=== PATIENT | female | born 1955 | race African-American/Black ===

== ENCOUNTER → 2016-04-12 | Outpatient (CLI) | payer BC ==
[2016-04-12 14:08] LABS: CH 28.4; CHCM 32.4; HDW 2.43; HGB 13.7 gm/dL (11.4-16.0); MCH 28.9 pg (25.0-35.0); MCHC 32.7 g/dL (31.0-37.0); MCV 88.2 fL (80.0-100.0); Mean Platelet Volume 7.5; RBC 4.76 m/uL (3.80-5.40); WBC 6.7 k/uL (3.8-10.6)
[2016-04-12 14:22] LABS: Prothrombin Time 10.1 sec (9.0-12.0)
[2016-04-12 14:32] LABS: Partial Thromboplastin Time 21.8 sec (22.0-30.0)
== END | disposition home or self-care (01) ==
LOC: LABPAT 12:07
PROVIDERS: ATTEND Thoracic Surgery (Cardiothoracic Vascular Surgery)
DX: Z01.810 Encounter for preprocedural cardiovascular examination (principal); Z01.812 Encounter for preprocedural laboratory examination; I10 Essential (primary) hypertension
CPT/HCPCS: 85027; 85610; 85730; 93005

== ENCOUNTER → 2016-04-12 | Outpatient (CLI) | payer BC ==
[2016-04-12 14:29] LABS: ALT 34 U/L (9-52); AST 25 U/L (14-36); Alkaline Phosphatase 65 U/L (38-126); Anion Gap 10 mmol/L; Blood Urea Nitrogen 17 mg/dL (7-17); Calcium 9.3 mg/dL (8.4-10.2); Carbon Dioxide 29 mmol/L (22-30); Chloride 107 mmol/L (98-107); Glucose 151 mg/dL (74-99); Non-African American GFR(MDRD) 57 (>60 ml/min/1.73 sqM); Potassium 3.9 mmol/L (3.5-5.1); Sodium 146 mmol/L (137-145); Total Bilirubin 0.5 mg/dL (0.2-1.3); Total Protein 6.6 g/dL (6.3-8.2)
== END ==
LOC: LABWHC1 12:11
PROVIDERS: ATTEND Internal Medicine Critical Care Medicine
DX: R06.00 Dyspnea, unspecified (principal)
CPT/HCPCS: 36415; 80053; 82164; 85652

== ENCOUNTER 2016-04-14 08:18 | Inpatient (IN) | payer BC ==
--- NOTE | 2016-04-08 19:11 | CONS ---
DATE OF CONSULTATION: 04/08/2016 Patient is a 60-year-old female who has had a persistent cough since October 2015. Patient states that she coughs nearly continuously all day and most of the night. She is having great difficulty sleeping. She has had CT scans which do not demonstrate any abnormality. She has had pulmonary function testing, which shows significant decrease in both her FVC which is 59% of predicted and her FEV1 which is 42% of predicted. Her DLCO is only 31% of predicted. This is consistent with airway obstruction and obstructive lung disease. The patient is being treated for that with albuterol, Breo, Singulair and Proventil. She is also being treated with prednisone. She has been up as high as 40 mg of prednisone a day which did help to reduce the cough. She is currently on 5 mg a day which does not appear to do anything. The patient is referred for concern of possible sarcoidosis and request for lung biopsy. Previous medical history is significant for hypertension and arthritis. Previous surgical history includes thyroidectomy and tubal ligation. The patient is ALLERGIC TO PENICILLIN, ASPIRIN, EGGS, MAGDALENA INHIBITORS AND SULFA. She does drink alcohol socially. She does not smoke at this time. She quit smoking in 2000. Her mother did suffer from COPD. She also has siblings who suffer from COPD, hypertension, and diabetes. Complete physical examination and review of systems are on the chart. Of note, her lung phipps are clear with somewhat diminished breath sounds. No rails or rhonchi are noted. The patient does cough fairly consistently at least once every minute while she was in the office. In summary, this is a 60-year-old woman with pulmonary function testing that is consistent with chronic obstructive pulmonary disease and a family history, which is positive for chronic obstructive pulmonary disease. She is on multiple medications to treat chronic obstructive pulmonary disease, but has persistent cough. The etiology of which is indeterminate. Her CT scan is negative for any infiltrates or adenopathy and the indication for lung biopsy here seems a little thin. I will discuss this further with Dr. Rothman, who sent her to me requesting lung biopsy. I did discuss the procedure with the patient including risks versus benefits, possible complications of the usual perioperative course. I did discuss with her that if we decide to biopsy her, there is a possibility that the lung will be read as normal and that the lung biopsy will not serve any purpose. I did discuss with her very clearly at this is a diagnostic procedure and that it in of itself performing the lung biopsy will not make her breathing better. I did discuss with her that even if we get an abnormal diagnosis it may be one that does not have a known treatment. The patient appeared to understand the discussion. I asked for her thoughts and she said she just wants to stop coughing and feel better and she would like to know what is wrong. I will discuss this further with Dr. Rothman and make a final decision on lung biopsy. If we decide to proceed, it will likely be next week. ADDENDUM: The case was discussed with Dr. Rothman at length the same day as the consultation. He feels strongly the patient should have lung biopsy, as he believes she has sarcoidosis. He informed me there are well documented cases of sarcoidosis on lung biopsy with normal CT and CXR. It was agreed to proceed with biopsy with this in mind. MIRNA
[2016-04-13 12:03] VITALS: BMI 23.6
[2016-04-14] MEDS ORDERED: LIDOCAINE 1% 20 ML VIAL (10MG/ML) FOR IV START INTRADERMA ONE (09:09)
[2016-04-14] MEDS ORDERED: HYDROCORTISONE SUCCINATE 100 MG/2 ML VIAL IV ONE (09:24)
[2016-04-14] MEDS ORDERED: DEXAMETHASONE SOD PHOSPHATE 10 MG/ML 1 ML VIAL IV ONE (09:24)
[2016-04-14] MEDS ORDERED: SCOPOLAMINE 1.5MG/72HR PATCH TRANSDERM ONE (09:25)
[2016-04-14] MEDS ORDERED: LACTATED RINGERS 1,000 ML IV ONE (09:25)
[2016-04-14] MEDS ORDERED: ONDANSETRON 4 MG/2 ML VIAL IVP ONE (09:25)
[2016-04-14 09:30] LABS: Glucose,Whole Blood 132 mg/dL (75-99)
[2016-04-14] MEDS ORDERED: PROPOFOL 10 MG/ML 20 ML VIAL IV ONE (10:02)
[2016-04-14] MEDS ORDERED: ROCURONIUM BROMIDE 10 MG/ML 10 ML VIAL IV ONE (10:02)
[2016-04-14] MEDS ORDERED: NEOSTIGMINE 1 MG/ML 10 ML VIAL ONE (10:02)
[2016-04-14] MEDS ORDERED: SUCCINYLCHOLINE CHLORIDE 100 MG/5 ML SYR IV ONE (10:02)
[2016-04-14] MEDS ORDERED: MIDAZOLAM 2 MG/2 ML VIAL ONE (10:02)
[2016-04-14] MEDS ORDERED: fentaNYL (PF) 50 MCG/ML 2 ML AMP ONE (10:02)
[2016-04-14] MEDS ORDERED: GLYCOPYRROLATE 0.2 MG/ML 2 ML VIAL ONE (10:02)
[2016-04-14] MEDS ORDERED: LIDOCAINE 1% INJ 10MG/ML (20 ML MDV) ONE (10:02)
[2016-04-14] MEDS ORDERED: VANCOMYCIN IV ONE ×2 (10:30)
[2016-04-14] MEDS ORDERED: SODIUM CHLORIDE 0.9% IV ONE ×2 (10:30)
[2016-04-14] MEDS ORDERED: BUPIVACAINE (PF) 0.5% 30 ML VIAL SQ ONE ×2 (10:36)
[2016-04-14] MEDS ORDERED: IPRATROPIUM-ALBUTEROL 3 ML NEB IH PRN (11:14)
[2016-04-14] MEDS ORDERED: ONDANSETRON 4 MG/2 ML VIAL IVP PRN (11:14)
[2016-04-14] MEDS: HYDROmorphone 1 MG/ML 1 ML SYRINGE IVP ONE ×4 (11:28→14:45)
--- NOTE | 2016-04-14 11:30 | P.OP ---
Date of Procedure: 04/14/16 Preoperative Diagnosis: Chronic obstructive pulmonary disease, rule out sarcoidosis Postoperative Diagnosis: Chronic obstructive pulmonary disease, rule out sarcoidosis Procedure(s) Performed: Right thoracoscopic lung biopsy Anesthesia: FELIPE Surgeon: Judah Mae Bar Roller #1: Miguel Todd Estimated Blood Loss (ml): 5 IV fluids (ml): 300 Urine output (ml): 100 Pathology: other (Biopsies of the right upper middle and lower lobe were submitted for both pathology and culture.) Condition: stable Disposition: PACU (The patient is a 60-year-old female who presents with over 6 months of cough and difficulty breathing. Pulmonary function tests are markedly abnormal. Chest x-ray and CT have been read as normal. Patient has had extensive workup without a diagnosis. Lung biopsy was requested by Dr. Rothman.) Indications for Procedure: The patient is a 60-year-old female who presents with a greater than six-month history of shortness of breath and cough. She has had an extensive pulmonary workup. She has had a trial of steroid therapy. Pulmonary function tests are highly abnormal. Chest x-ray and computed tomography scan are read as essentially normal aside from some mild emphysematous changes on CT. Lung biopsy was requested by Dr. Rothman. Operative Findings: At thoracoscopy, the lung appeared relatively normal. There were some small blebs present on the inferior aspect of the right upper lobe. This area was biopsied. Biopsies were obtained from all 3 lobes and were sent for culture and pathology. Description of Procedure: Patient was brought to the operating room placed supine on the operating table anesthetized and intubated with a double-lumen endotracheal tube. Tube was positioned with fiberoptic bronchoscopy and secured. Patient was turned in the left lateral decubitus position. Right chest was sterilely prepped and draped. 3 one-inch incisions were made in the right chest. The lung was deflated. Video thoracoscope was used to guide biopsy of the right upper middle and lower lobe. Each biopsy was performed with 2 firings of the Endo EUNICE 3.5 stapler. Specimens were removed from the chest and cut on the back table. Portions were sent for culture including routine AFB and fungus cultures. Portions were also sent for pathology. On completion of the procedure a 28-Portuguese chest tube was placed through separate stab incision and positioned posterior apically. Was secured with 0 Ethibond. The lung was inflated under thoracoscopic visualization. Rib blocks were performed at the level of the incision with half percent Marcaine. The incisions were closed with layers of Vicryl suture. Dry sterile dressings were applied the patient was turned supine and extubated and transferred to recovery room in stable condition.
--- NOTE | 2016-04-14 11:57 | XR ---
EXAMINATION TYPE: XR chest 1V DATE OF EXAM: 04/14/2016 11:48 AM COMPARISON: 12/06/2015 HISTORY: 60-year-old female postop VATS TECHNIQUE: Single frontal view of the chest is obtained. FINDINGS: Heart is normal size. Mild elongation of the thoracic aorta. New right-sided chest tube is present. S ome stringy atelectasis at the left base. Additional patchy right mid and lower lung opacity. No appr eciable pneumothorax. IMPRESSION: 1. New right-sided chest tube. No appreciable pneumothorax. 2. Some new patchy atelectasis or infiltrate at the right base and some atelectasis at the left base.
[2016-04-14] MEDS: DEXTROSE 5%-0.45% NACL 1,000 ML IV SCH (15:16)
[2016-04-14] MEDS: HYDROCHLOROTHIAZIDE 25 MG TAB PO SCH (16:18)
[2016-04-14] MEDS: ALLOPURINOL 100 MG TAB PO SCH (16:18)
[2016-04-14] MEDS: IPRATROPIUM-ALBUTEROL 3 ML NEB IH SCH ×2 (16:43→20:15)
[2016-04-14] MEDS: MORPHINE SULFATE 2 MG/ML SYRINGE IV PRN ×3 (17:01→23:07)
--- NOTE | 2016-04-14 17:28 | P.CNPUL ---
History of Present Illness Consult date: 04/14/16 Requesting physician: Judah Mae Reason for consult: cough Chief complaint: Status post thoracoscopic lung biopsy History of present illness: This is a 60-year-old -[place] female, has been seeing Dr. Rothman since October of 2015 with chronic cough. Apparently she had extensive workup in the office and her workup was nondiagnostic. She had a PFT showing mostly severe restrictive and obstructive lung disease and low DLCO, however her CT of the chest was nondiagnostic. Chest x-ray was also nondiagnostic. Patient was referred to thoracic surgery for thoracoscopic lung biopsy. This was done today , and postoperatively I was asked to see the patient on consultation. Patient is having a relatively uneventful postoperative course except for some cough. Pain seems to be fairly well controlled. Patient continues to have a right- sided chest tube in place, and that will likely be removed tomorrow. Review of Systems 12 point review of systems were obtained, patient has mostly symptoms of chronic cough. Past Medical History Past Medical History: Chest Pain / Angina, GERD/Reflux, Hypertension, Skin Disorder, Thyroid Disorder Additional Past Medical History / Comment(s): taking prednisone for cough and SOB since Oct 2015,freq diarrhea,eczema History of Any Multi-Drug Resistant Organisms: None Reported Past Surgical History: Tubal Ligation Additional Past Surgical History / Comment(s): thyroidectomy,marker rt breast Additional Past Anesthesia/Blood Transfusion Reaction / Comment(s): states "has a hard time coming out of anesthesia".no hx blood transfusion Past Psychological History: No Psychological Hx Reported Smoking Status: Former smoker Past Alcohol Use History: Occasional Additional Past Alcohol Use History / Comment(s): quit smoking 2000,smoked approx 25-30yrs <1ppd Past Drug Use History: None Reported - Past Family History Mother Family Medical History: COPD, Diabetes Mellitus Additional Family Medical History / Comment(s): "bad heart" Father Family Medical History: Renal Disease Sister(s) Family Medical History: Congestive Heart Failure (CHF), COPD, Diabetes Mellitus , Hypertension Medications and Allergies Home Medications Medication Instructions Recorded Confirmed Type Allopurinol [Zyloprim] 100 mg PO DAILY 04/13/16 04/14/16 History Calcium Carbonate/Vitamin D3 1 tab PO DAILY 04/13/16 04/14/16 History [Caltrate 600 Plus D3 Tablet] Ergocalciferol [Vitamin D2] 50,000 unit PO Q30D 04/13/16 04/14/16 History Hydrochlorothiazide 25 mg PO DAILY 04/13/16 04/14/16 History Ibuprofen [Motrin] 400 mg PO TID PRN 04/13/16 04/14/16 History L.acidoph,Paracasei, B.lactis 1 cap PO DAILY 04/13/16 04/14/16 History [Probiotic] [place]-3/Dha/Epa/Fish Oil [Fish Oil 1 cap PO DAILY 04/13/16 04/14/16 History 500 mg Softgel] Pravastatin Sodium [Pravastatin 20 mg PO DAILY 04/13/16 04/14/16 History Sodium] cloNIDine HCL [Catapres] 0.1 mg PO BID 04/13/16 04/14/16 History predniSONE 5 mg PO DAILY 04/13/16 04/14/16 History traMADol HCL [Ultram] 50 mg PO Q6HR PRN 04/13/16 04/14/16 History Levothyroxine Sodium [Levoxyl] 125 mcg PO DAILY 04/14/16 04/14/16 History Allergies Allergy/AdvReac Type Severity Reaction Status Date / Time adhesive Allergy Rash/Hives Verified 04/14/16 08:38 adhesive tape Allergy Rash/Hives,states Verified 04/14/16 08:38 "paper tape ok" egg Allergy stomach Verified 04/14/16 08:38 upset latex Allergy Rash/Hives Verified 04/14/16 08:38 Penicillins Allergy Nausea & Verified 04/14/16 08:38 Vomiting sulfamethoxazole Allergy muscle Verified 04/14/16 08:38 spasms,dyspnea Physical Exam Vitals: Vital Signs Temp Pulse Resp BP Pulse Ox 04/14/16 14:30 74 16 133/96 100 04/14/16 13:30 78 16 149/94 100 04/14/16 13:01 69 16 145/95 100 04/14/16 12:45 77 16 147/91 100 04/14/16 12:30 79 16 139/82 100 04/14/16 12:15 74 16 143/102 99 04/14/16 12:00 76 16 144/99 99 04/14/16 11:45 74 16 154/103 100 04/14/16 11:30 78 16 143/98 100 04/14/16 11:19 97.8 F 89 15 165/108 97 04/14/16 08:48 97.3 F L 85 16 153/93 96 Intake and Output 04/14/16 04/14/16 04/14/16 06:59 14:59 22:59 Intake Total 1000 Output Total 125 Balance 875 Intake: IV 1000 Output: Urine 100 Estimated Blood Loss 25 Other: Weight 78.6 kg Patient Weight 04/15/16 06:59 Weight 78.6 kg Physical Exam revealed a 60-year-old female in no distress HEENT:[Neck is supple.] [No neck masses.] [No thyromegaly.] [No JVD.] Chest: [Diminished breath sounds at the bases, minimal crackles at the right base, no rhonchi no wheezes. Cardiac Exam: [Normal S1 and S2, no S3 gallop, no murmur.] Abdomen: [Soft, nontender, no megaly, no rebound, no guarding, normal bowel sounds.] Extremities: [No clubbing, no edema, no cyanosis.] Neurological Exam: [No focal neurologic deficit.] Results - Laboratory Findings Abnormal lab findings: Abnormal Labs 04/14/16 09:21 POC Glucose (mg/dL) 132 H Assessment and Plan Plan: Impression: 1 Status post thoracoscopic lung biopsy, patient has a relatively uneventful postoperative course. 2 chronic cough with abnormal PFT, final pathology on the lung biopsy is pending. 3 history of hypertension 4 history of hypothyroidism 5 history of hypercholesterolemia 6 history of gout Recommendation: Continue DuoNeb, continue incentive spirometry, and we'll continue to follow. Time with Patient: Greater than 30
[2016-04-14] MEDS: PRAVASTATIN SODIUM 20 MG TAB PO SCH (20:35)
[2016-04-14] MEDS: cloNIDine HCL 0.1 MG TAB PO SCH (20:35)
[2016-04-14] MEDS: HEPARIN SODIUM,PORCINE 5,000 UNIT/ML 1 ML VIAL SQ SCH (20:36)
[2016-04-15] MEDS: DEXTROSE 5%-0.45% NACL 1,000 ML IV SCH (00:50)
[2016-04-15] MEDS: MORPHINE SULFATE 2 MG/ML SYRINGE IV PRN ×4 (04:25→23:10)
[2016-04-15] MEDS: LEVOTHYROXINE 125 MCG TAB PO SCH (06:21)
[2016-04-15 07:22] LABS: Basophils % (A) 0 %; CH 28.3; CHCM 32.6; Eosinophils % (A) 0 %; HCT 38.8 % (34.0-46.0); HDW 2.53; HGB 12.7 gm/dL (11.4-16.0); Luc # (Auto) 0.13; Luc % (Auto) 1; Lymphocytes # (A) 1.6 k/uL (1.0-4.8); Lymphocytes % (A) 15 %; MCH 28.5 pg (25.0-35.0); MCHC 32.7 g/dL (31.0-37.0); MCV 87.3 fL (80.0-100.0); Mean Platelet Volume 7.8; Monocytes # (A) 0.4 k/uL (0-1.0); Monocytes % (A) 4 %; Neutrophils # (A) 8.4 k/uL (1.3-7.7); Neutrophils % (A) 79 %; RBC 4.44 m/uL (3.80-5.40); RDW 13.5 % (11.5-15.5); WBC 10.6 k/uL (3.8-10.6); WBC (Perox) 10.38
[2016-04-15 07:33] LABS: Anion Gap 7 mmol/L; Blood Urea Nitrogen 13 mg/dL (7-17); Carbon Dioxide 27 mmol/L (22-30); Chloride 103 mmol/L (98-107); Glucose 157 mg/dL (74-99); Non-African American GFR(MDRD) >60 (>60 ml/min/1.73 sqM); Sodium 137 mmol/L (137-145)
[2016-04-15] MEDS: HYDROcodone/APAP 5-325MG 1 EACH TAB PO PRN ×3 (07:40→20:32)
[2016-04-15] MEDS: cloNIDine HCL 0.1 MG TAB PO SCH ×2 (08:05→20:33)
[2016-04-15] MEDS: HEPARIN SODIUM,PORCINE 5,000 UNIT/ML 1 ML VIAL SQ SCH ×2 (08:05→20:33)
[2016-04-15] MEDS: HYDROCHLOROTHIAZIDE 25 MG TAB PO SCH (08:06)
[2016-04-15] MEDS: ALLOPURINOL 100 MG TAB PO SCH (08:06)
--- NOTE | 2016-04-15 08:38 | P.PN ---
Subjective Principal diagnosis: COPD, rule out sarcoidosis POD #1 right thorascopic lung biopsy Sitting up in bed in mild respiratory distress, pain at CT site. Objective - Vital Signs Vital signs: Vital Signs Temp 98.1 F 04/15/16 00:00 Pulse 91 04/15/16 04:00 Resp 18 04/15/16 04:00 BP 143/93 04/15/16 04:00 Pulse Ox 96 04/15/16 04:00 Intake & Output 04/14/16 04/15/16 04/15/16 18:59 06:59 18:59 Intake Total 1120 600 Output Total 125 22 Balance 995 578 Weight 78.6 kg 79.4 kg Intake: IV 1000 Intake, IV Titration 600 Amount Dextrose 5%-0.45% NaCl 1, 600 000 ml @ 75 mls/hr IV . [id number] LUCÍA Rx#:[id number] Oral 120 Output: Drainage 22 Right Lateral Chest 22 Urine 100 Estimated Blood Loss 25 Other: Voiding Method Toilet # Voids 2 - Constitutional General appearance: Present: cooperative, mild distress - Respiratory Details: Right pleural chest tube placed to waterseal this morning, serosanguineous drainage present, 22 cc since surgery, no air leak. Respiratory: bilateral: diminished, wheezing - Cardiovascular Details: NSR on tele Rhythm: regular Heart sounds: normal: S1, S2 - Gastrointestinal Gastrointestinal Comment(s): Abdomen soft, nontender, nondistended. Active bowel sounds 4 quadrants. - Genitourinary Genitourinary Comment(s): Voiding clear, yellow urine - Musculoskeletal Musculoskeletal: Present: gait normal - Psychiatric Psychiatric: Present: A&O x's 3, appropriate affect, intact judgment & insight - Allied health notes Allied health notes reviewed: nursing - Labs CBC & Chem 7: 04/15/16 07:01 04/15/16 07:01 Labs: Abnormal Lab Results - Last 24 Hours (Table) 04/14/16 04/15/16 04/15/16 Range/Units 09:21 07:01 07:01 Neutrophils # 8.4 H (1.3-7.7) k/uL Glucose 157 H (74-99) mg/dL POC Glucose (mg/dL) 132 H (75-99) mg/dL Microbiology - Last 24 Hours (Table) 04/14/16 11:05 Gram Stain - Preliminary Lung - Right Tissue Culture - Preliminary 04/14/16 11:05 Gram Stain - Preliminary Lung - Right Tissue Culture - Preliminary 04/14/16 11:05 Gram Stain - Preliminary Lung - Right Tissue Culture - Preliminary 04/14/16 11:05 Acid Fast Bacilli Culture - Preliminary Lung - Right 04/14/16 11:05 Anaerobic Culture - Preliminary Lung - Right 04/14/16 11:05 Anaerobic Culture - Preliminary Lung - Right 04/14/16 11:05 Acid Fast Bacilli Culture - Preliminary Lung - Right 04/14/16 11:05 Fungal Culture - Preliminary Lung - Right 04/14/16 11:05 Fungal Culture - Preliminary Lung - Right 04/14/16 11:05 Fungal Culture - Preliminary Lung - Right 04/14/16 11:05 Acid Fast Bacilli Culture - Preliminary Lung - Right 04/14/16 11:05 Anaerobic Culture - Preliminary Lung - Right Assessment and Plan (1) COPD (chronic obstructive pulmonary disease) Status: Acute Plan: 1. DC right pleural chest tube. Obtain chest x-ray. 2. Pain control. 3. Discussed with RN need for breathing treatment. 4. Will DC home later if chest x-ray okay. 5. Patient to follow-up with Dr. Rothman, Dr. Mae in 2 weeks for pathology results. Time with Patient: Greater than 30
[2016-04-15] MEDS: IPRATROPIUM-ALBUTEROL 3 ML NEB IH SCH ×4 (08:55→19:48)
--- NOTE | 2016-04-15 10:28 | XR ---
EXAMINATION TYPE: XR chest 2V DATE OF EXAM: 04/15/2016 10:09 AM COMPARISON: 04/14/2016 TECHNIQUE: PA and lateral views submitted. HISTORY: Post chest tube removal FINDINGS: Subsegmental consolidation bilaterally. There is a tiny less than 5% right lateral pneumothorax. Hear t size stable. IMPRESSION: 1. Bilateral infiltrate and tiny right effusion are stable. 2. Chest tube removal with tiny midlung lateral less than 5% pneumothorax.
[2016-04-15] MEDS: traMADol 50 MG TAB PO PRN ×2 (10:44→16:06)
--- NOTE | 2016-04-15 10:48 | P.DS ---
Providers Date of admission: 04/14/16 08:18 Attending physician: Judah Mae Consults: 04/14/16 11:14 Consult Physician Routine Consulting Provider: Mateo Rothman Reason/Comments: post op, known to you Do you want consulting provider notified?: Yes Primary care physician: Brennon Colin - Discharge Diagnosis(es) (1) COPD (chronic obstructive pulmonary disease) Current Visit: Yes Status: Acute Hospital Course: FINAL DIAGNOSIS: 1.[chronic obstructive pulmonary disease, rule out sarcoidosis] 2.[hypertension] 3.[hypothyroid] PRINCIPAL PROCEDURE: 1.[right thorascopic lung biopsy] 2.[placement of right pleural chest tube] HISTORY OF PRESENT ILLNESS: [This 60 year old female was being followed by Dr. Rothman for the last 6 months for unrelieved shortness of breath and increasing coughing. Her pulmonary function tests in his office were grossly abnormal, however, chest x-ray and CT scan had been read as normal. She underwent an extensive work-up without a diagnosis. Dr. Rothman consulted cardiothoracic surgery for lung biopsy. The patient was seen and evaluated by Dr. Mae, an extensive discussion was held with the patient regarding risks and benefits of the procedure, including that the diagnosis may not be one for which there is a cure. She verbalized understanding and wished to proceed with surgery.] HOSPITAL COURSE:[The patient was brought to the hospital, was taken to the operating room and prepared per usual fashion. Dr. Mae performed a right thorascopic lung biopsy, with samples of right upper, middle, and lower lobes sent for culture and pathology. A right pleural chest tube was placed, the patient was extubated, transferred to the recovery room, then transferred to [address] [place] [address] for further recovery. She had no complications overnight, her chest tube was dc'd on POD #1, CXR was ordered and reviewed. The patient is to be discharged home on her home medications with the addition of pain medication, follow up appointments were made, instructions were given regarding incision care, and the patient is to receive her biopsy results at her follow up appointments. ] COMPLICATIONS: [The patient experienced no complications] CONSULTATIONS: 1.[Dr. Plascencia for pulmonology] DISCHARGE INSTRUCTIONS: 1. No driving for 2 weeks, or until physician gives their ok. 2. The patient should sleep in their own bed, no medical bed needed. 3. Stairs are not an issue. Go slowly, using handrail and take 1 step at a time 4. No lifting, pushing, or pulling more than 10 pounds for 2 weeks. The physician will advise of any restriction changes. 5. May return to work when feeling physically able. 6. Continue pain control per as needed orders. 7. Continue with incentive spirometry until otherwise directed by the physician. 8. Must shower daily after 48 hours from chest tube removal using liquid antibacterial soap. 9. Please remove dressing on [April 17, 2016] with routine incision care thereafter. 10. Pathology results to be discussed at follow-up appointments. Patient Condition at Discharge: Stable Plan - Discharge Summary New Discharge Prescriptions: HYDROcodone/APAP 5-325MG [[place] 5-325] 1 each PO Q4HR PRN #30 tab PRN Reason: Pain 6-10 Discharge Medication List Allopurinol [Zyloprim] 100 mg PO DAILY 04/13/16 [History] Calcium Carbonate/Vitamin D3 [Caltrate 600 Plus D3 Tablet] 1 tab PO DAILY [History] Ergocalciferol [Vitamin D2 (DRISDOL)] 50,000 unit PO Q30D 04/13/16 [History] Hydrochlorothiazide 25 mg PO DAILY 04/13/16 [History] Ibuprofen [Motrin] 400 mg PO TID PRN 04/13/16 [History] L.acidoph,Paracasei, B.lactis [Probiotic] 1 cap PO DAILY 04/13/16 [History] [place]-3/Dha/Epa/Fish Oil [Fish Oil 500 mg Softgel] 1 cap PO DAILY 04/13/16 [ History] Pravastatin Sodium 20 mg PO DAILY 04/13/16 [History] cloNIDine HCL [Catapres] 0.1 mg PO BID 04/13/16 [History] predniSONE 5 mg PO DAILY 04/13/16 [History] traMADol HCL [Ultram] 50 mg PO Q6HR PRN 04/13/16 [History] Levothyroxine Sodium [Levoxyl] 125 mcg PO DAILY 04/14/16 [History] HYDROcodone/APAP 5-325MG [[place] 5-325] 1 each PO Q4HR PRN #30 tab 04/15/16 [Rx] Follow up Appointment(s)/Referral(s): Judah Mae MD [STAFF PHYSICIAN] - 04/26/16 2:00 pm Mateo Rothman DO [Doctor of Osteopathic Medicine] - 04/26/16 1:00 pm Activity/Diet/Wound Care/Special Instructions: DISCHARGE INSTRUCTIONS: 1. No driving for 2 weeks, or until physician gives their ok. 2. The patient should sleep in their own bed, no medical bed needed. 3. Stairs are not an issue. Go slowly, using handrail and take 1 step at a time 4. No lifting, pushing, or pulling more than 10 pounds for 2 weeks. The physician will advise of any restriction changes. 5. May return to work when feeling physically able. 6. Continue pain control per as needed orders. 7. Continue with incentive spirometry until otherwise directed by the physician. 8. Must shower daily after 48 hours from chest tube removal using liquid antibacterial soap. 9. Please remove dressing on [April 17, 2016] with routine incision care thereafter. 10. Pathology results to be discussed at follow-up appointments. Discharge Disposition: HOME SELF-CARE
--- NOTE | 2016-04-15 12:25 | P.PN ---
Subjective Principal diagnosis: Status post thoracoscopic lung biopsy History of present illness: This is a 60-year-old -[place] female, has been seeing Dr. Rothman since October of 2015 with chronic cough. Apparently she had extensive workup in the office and her workup was nondiagnostic. She had a PFT showing mostly severe restrictive and obstructive lung disease and low DLCO, however her CT of the chest was nondiagnostic. Chest x-ray was also nondiagnostic. Patient was referred to thoracic surgery for thoracoscopic lung biopsy. This was done today , and postoperatively I was asked to see the patient on consultation. Patient is having a relatively uneventful postoperative course except for some cough. Pain seems to be fairly well controlled. Patient continues to have a right- sided chest tube in place, and that will likely be removed tomorrow. Patient was reevaluated today on 04/15/2016, her right-sided chest tube was removed. Patient desaturated with walking today, hence she will be discharged home on oxygen. Overall pulmonary status is about the same, continues to have cough, and that is a chronic since October of last year. Patient was made aware to follow up with Dr. Rothman after discharge and hopefully by the time she sees him the biopsy report will be available and he will discuss it with her. Objective - Vital Signs Vital signs: Vital Signs Temp 98.8 F 04/15/16 08:00 Pulse 84 04/15/16 09:07 Resp 20 04/15/16 12:06 BP 148/93 04/15/16 08:00 Pulse Ox 95 04/15/16 12:06 Intake & Output 04/14/16 04/15/16 04/15/16 18:59 06:59 18:59 Intake Total 1120 600 120 Output Total 125 22 100 Balance 995 578 20 Weight 78.6 kg 79.4 kg 79.4 kg Intake: IV 1000 Intake, IV Titration 600 Amount Dextrose 5%-0.45% NaCl 1, 600 000 ml @ 75 mls/hr IV . [id number] LUCÍA Rx#:[id number] Oral 120 120 Output: Drainage 22 Right Lateral Chest 22 Urine 100 100 Estimated Blood Loss 25 Other: Voiding Method Toilet Toilet # Voids 2 2 - Exam Physical Exam revealed a 60-year-old female in no distress, right-sided chest tube has been removed HEENT:[Neck is supple.] [No neck masses.] [No thyromegaly.] [No JVD.] Chest: [Diminished breath sounds at the bases, minimal crackles at the right base, no rhonchi no wheezes. Cardiac Exam: [Normal S1 and S2, no S3 gallop, no murmur.] Abdomen: [Soft, nontender, no megaly, no rebound, no guarding, normal bowel sounds.] Extremities: [No clubbing, no edema, no cyanosis.] Neurological Exam: [No focal neurologic deficit.] - Labs CBC & Chem 7: 04/15/16 07:01 04/15/16 07:01 Labs: Abnormal Lab Results - Last 24 Hours (Table) 04/15/16 04/15/16 Range/Units 07:01 07:01 Neutrophils # 8.4 H (1.3-7.7) k/uL Glucose 157 H (74-99) mg/dL Microbiology - Last 24 Hours (Table) 04/14/16 11:05 Gram Stain - Preliminary Lung - Right Tissue Culture - Preliminary 04/14/16 11:05 Gram Stain - Preliminary Lung - Right Tissue Culture - Preliminary 04/14/16 11:05 Gram Stain - Preliminary Lung - Right Tissue Culture - Preliminary 04/14/16 11:05 Acid Fast Bacilli Culture - Preliminary Lung - Right 04/14/16 11:05 Anaerobic Culture - Preliminary Lung - Right 04/14/16 11:05 Anaerobic Culture - Preliminary Lung - Right 04/14/16 11:05 Acid Fast Bacilli Culture - Preliminary Lung - Right 04/14/16 11:05 Fungal Culture - Preliminary Lung - Right 04/14/16 11:05 Fungal Culture - Preliminary Lung - Right 04/14/16 11:05 Fungal Culture - Preliminary Lung - Right 04/14/16 11:05 Acid Fast Bacilli Culture - Preliminary Lung - Right 04/14/16 11:05 Anaerobic Culture - Preliminary Lung - Right Assessment and Plan Plan: Impression: 1 Status post thoracoscopic lung biopsy, patient has a relatively uneventful postoperative course. 2 chronic cough with abnormal PFT, final pathology on the lung biopsy is pending. 3 history of hypertension 4 history of hypothyroidism 5 history of hypercholesterolemia 6 history of gout 7 postoperative hypoxia on exertion, patient will need to be placed on home O2 she would have incentive spirometry, continue bronchodilators and medications as ordered by Dr. Alexandra for her underlying lung disease. Recommendation: Continue DuoNeb, continue incentive spirometry, home O2, follow up with Dr. Rothman as scheduled. Time with Patient: Less than 30
[2016-04-15] MEDS: PRAVASTATIN SODIUM 20 MG TAB PO SCH (20:33)
[2016-04-16] MEDS: HYDROcodone/APAP 5-325MG 1 EACH TAB PO PRN ×2 (06:22→10:47)
[2016-04-16] MEDS: LEVOTHYROXINE 125 MCG TAB PO SCH (06:22)
--- NOTE | 2016-04-16 07:56 | P.PN ---
Subjective Principal diagnosis: COPD, rule out sarcoidosis POD #2 right thorascopic lung biopsy Sitting up in bed in moderate respiratory distress,doesn't feel she's getting any better. Objective - Vital Signs Vital signs: Vital Signs Temp 98.7 F 04/16/16 00:00 Pulse 90 04/16/16 04:00 Resp 18 04/16/16 04:00 BP 144/92 04/16/16 04:00 Pulse Ox 97 04/16/16 04:00 Intake & Output 04/15/16 04/16/16 04/16/16 18:59 06:59 18:59 Intake Total 390 Output Total 1000 Balance -610 Weight 79.4 kg 78.5 kg Intake: Intake, IV Titration 150 Amount Dextrose 5%-0.45% NaCl 1, 150 000 ml @ 75 mls/hr IV . [id number] LUCÍA Rx#:[id number] Oral 240 Output: Urine 1000 Other: Voiding Method Toilet Toilet # Voids 1 1 - Constitutional General appearance: Present: cooperative, mild distress - Respiratory Details: Lungs sounds diminished with wheezing throughout. Patient is tachypneic with shallow breaths. She was on 2 L nasal cannula with oxygen saturation of 97%. Placed on room air with oxygen saturations maintaining 94-95%. Only able to achieve 500 mL on incentive spirometry. Respiratory: bilateral: wheezing - Cardiovascular Details: S1, S2 present. Regular rate and rhythm, sinus rhythm to sinus tach on telemetry. - Gastrointestinal Gastrointestinal Comment(s): Abdomen soft, nontender, nondistended. Active bowel sounds 4 quadrants. Tolerating diet. - Genitourinary Genitourinary Comment(s): Up to bathroom voiding clear, yellow urine. - Musculoskeletal Musculoskeletal Comment(s): Ambulating to and from bathroom without difficulty. Musculoskeletal: Present: gait normal - Psychiatric Psychiatric Comment(s): Patient highly anxious. Psychiatric: Present: A&O x's 3, appropriate affect - Allied health notes Allied health notes reviewed: nursing - Labs CBC & Chem 7: 04/15/16 07:01 04/15/16 07:01 Labs: Microbiology - Last 24 Hours (Table) 04/14/16 11:05 Acid Fast Bacilli Smear - Final Lung - Right Acid Fast Bacilli Culture - Preliminary 04/14/16 11:05 Acid Fast Bacilli Smear - Final Lung - Right Acid Fast Bacilli Culture - Preliminary 04/14/16 11:05 Acid Fast Bacilli Smear - Final Lung - Right Acid Fast Bacilli Culture - Preliminary 04/14/16 11:05 Gram Stain - Preliminary Lung - Right Tissue Culture - Preliminary 04/14/16 11:05 Gram Stain - Preliminary Lung - Right Tissue Culture - Preliminary 04/14/16 11:05 Gram Stain - Preliminary Lung - Right Tissue Culture - Preliminary Assessment and Plan (1) COPD (chronic obstructive pulmonary disease) Status: Acute Plan: 1. Will obtain chest x-ray secondary to patient's respiratory distress. 2. Pain control. 3. Discussed with RN need for encouragement to use incentive spirometry. 4. Supportive care at this point in time. Need to control anxiety 5. Hopefully will discharge soon. Time with Patient: Greater than 30
[2016-04-16 08:15] VITALS: RESP 20
[2016-04-16] MEDS: HYDROCHLOROTHIAZIDE 25 MG TAB PO SCH (08:22)
[2016-04-16] MEDS: ALLOPURINOL 100 MG TAB PO SCH (08:22)
[2016-04-16] MEDS: HEPARIN SODIUM,PORCINE 5,000 UNIT/ML 1 ML VIAL SQ SCH (08:22)
[2016-04-16] MEDS: cloNIDine HCL 0.1 MG TAB PO SCH (08:22)
[2016-04-16] MEDS ORDERED: predniSONE 5 MG TAB PO SCH (09:00)
--- NOTE | 2016-04-16 09:09 | XR ---
EXAMINATION TYPE: XR chest 2V DATE OF EXAM: 04/16/2016 7:57 AM COMPARISON: 04/15/2016 INDICATION: Short of breath, postop TECHNIQUE: Single frontal view of the chest is obtained. FINDINGS: The heart size is normal. The pulmonary vasculature is normal. There is increased density in the region of the minor fissure on the right. No pneumothorax is eviden t. Previous tiny pneumothorax appears resolved. No significant effusion is evident. Some mild atelect asis may be at the left base. IMPRESSION: 1. Previous pneumothorax has resolved. 2. Increased density through the right midlung along the minor fissure. 3. Some mild subsegmental atelectasis is likely present at the left base.
[2016-04-16] MEDS: IPRATROPIUM-ALBUTEROL 3 ML NEB IH SCH ×2 (11:45)
[2016-04-16 12:37] VITALS: BP 148/95; PULSE 96; TEMP 97.9
== END 2016-04-16 15:30 | disposition home or self-care (01) | DRG 167 ==
LOC: 2ORMAIN 08:18 → 6SEL 11:19
PROVIDERS: ADMIT Thoracic Surgery (Cardiothoracic Vascular Surgery); ATTEND Thoracic Surgery (Cardiothoracic Vascular Surgery)
PROC: 0BBD8ZX Excision of Right Middle Lung Lobe, Via Natural or Artificial Opening Endoscopic, Diagnostic (ICD-10-PCS; principal; 2016-04-14 10:00)
PROC: 0BBF8ZX Excision of Right Lower Lung Lobe, Via Natural or Artificial Opening Endoscopic, Diagnostic (ICD-10-PCS; principal; 2016-04-14 10:00)
PROC: 0BBC8ZX Excision of Right Upper Lung Lobe, Via Natural or Artificial Opening Endoscopic, Diagnostic (ICD-10-PCS; principal; 2016-04-14 10:00)
DX: J44.9 Chronic obstructive pulmonary disease, unspecified (principal); J95.89 Other postprocedural complications and disorders of respiratory system, not elsewhere classified; I10 Essential (primary) hypertension; E03.9 Hypothyroidism, unspecified; E78.00 Pure hypercholesterolemia, unspecified; K21.9 Gastro-esophageal reflux disease without esophagitis; M10.9 Gout, unspecified; R09.02 Hypoxemia; Z82.49 Family history of ischemic heart disease and other diseases of the circulatory system; Z82.5 Family history of asthma and other chronic lower respiratory diseases; Z87.891 Personal history of nicotine dependence; Z79.899 Other long term (current) drug therapy; Z88.8 Allergy status to other drugs, medicaments and biological substances; Z88.0 Allergy status to penicillin; Z88.2 Allergy status to sulfonamides; Z91.040 Latex allergy status; D86.9 Sarcoidosis, unspecified; R00.0 Tachycardia, unspecified
CPT/HCPCS: 36620; 71010; 71020; 80048; 84439; 84443; 85025; 87070; 87075; 87102; 87116; 87205; 87206; 88307; 94640

== ENCOUNTER → 2016-08-18 | Outpatient (CLI) | payer BC ==
--- NOTE | 2016-08-18 17:41 | XR ---
EXAMINATION TYPE: XR cervical spine comp DATE OF EXAM: 08/18/2016 COMPARISON: NONE HISTORY: Neck pain TECHNIQUE: 5 views FINDINGS: Cervical vertebra have normal alignment. There is narrowing of disc spaces from see 3 to C7 with spurring of the endplates. Atlantoaxial facet joint is normal. There are no cervical ribs. Ther e is neural foraminal impingement bilaterally from C5 to T1 due to uncovertebral spurring. IMPRESSION: Multilevel spondylosis. No fracture.
== END | disposition home or self-care (01) ==
LOC: RADXRMAIN 16:45
PROVIDERS: ATTEND Family Medicine
DX: M47.812 Spondylosis without myelopathy or radiculopathy, cervical region (principal)
CPT/HCPCS: 72050

== ENCOUNTER → 2017-09-16 | Day surgery (SDC) | payer BC ==
[2017-09-13 10:49] VITALS: BMI 24.7
[~2017-09-16] MED LIST: LACTATED RINGERS 1,000 ML IV ONE; LACTATED RINGERS 1,000 ML IV SCH; PROPOFOL 10 MG/ML 20 ML VIAL IV ONE
[2017-09-16 07:24] VITALS: TEMP 98.1
--- NOTE | 2017-09-16 07:26 | P.GSHP ---
History of Present Illness H&P Date: 09/16/17 CHIEF COMPLAINT: Colon screen HISTORY OF PRESENT ILLNESS: The patient is a 61-year-old female who presents for colon screen. Lower endoscopy was offered for further evaluation and management. PAST MEDICAL HISTORY: Please see list. PAST SURGICAL HISTORY: Please see list. MEDICATIONS: Please see list. ALLERGIES: Please see list. SOCIAL HISTORY: No illicit drug use FAMILY HISTORY: No reports of Crohn disease or ulcerative colitis. REVIEW OF ORGAN SYSTEMS: CONSTITUTIONAL: No reports of fevers or chills. PHYSICAL EXAM: VITAL SIGNS: Stable GENERAL: Well-developed pleasant in no acute distress. HEENT: No scleral icterus. Extraocular movements grossly intact. Moist buccal mucosa. NECK: Supple without lymphadenopathy. CHEST: Unlabored respirations. Equal bilateral excursions. CARDIOVASCULAR: Regular rate and rhythm. Distal 2+ pulses. ABDOMEN: Soft, nontender, nondistended. MUSCULOSKELETAL: No clubbing, cyanosis, or edema. ASSESSMENT: 1. Colon screen. PLAN: 1. Recommend proceeding with a lower endoscopy Past Medical History Past Medical History: Chest Pain / Angina, Diabetes Mellitus, GERD/Reflux, Hypertension, Skin Disorder, Thyroid Disorder Additional Past Medical History / Comment(s): taking prednisone for NSIP( chronic lung condition),eczema History of Any Multi-Drug Resistant Organisms: None Reported Past Surgical History: Tubal Ligation Additional Past Surgical History / Comment(s): thyroidectomy,marker rt breast, bronchoscopy Additional Past Anesthesia/Blood Transfusion Reaction / Comment(s): states "has a hard time coming out of anesthesia".no hx blood transfusion Smoking Status: Former smoker - Past Family History Mother Family Medical History: COPD, Diabetes Mellitus Additional Family Medical History / Comment(s): "bad heart" Father Family Medical History: Renal Disease Sister(s) Family Medical History: Congestive Heart Failure (CHF), COPD, Diabetes Mellitus , Hypertension Medications and Allergies Home Medications Medication Instructions Recorded Confirmed Type Ergocalciferol [Vitamin D2 50,000 unit PO Q30D 04/13/16 09/13/17 History (DRISDOL)] Hydrochlorothiazide 25 mg PO DAILY 04/13/16 09/13/17 History Pravastatin Sodium 40 mg PO DAILY 04/13/16 09/13/17 History cloNIDine HCL [Catapres] 0.2 mg PO BID 04/13/16 09/13/17 History predniSONE 10 mg PO HS 04/13/16 09/13/17 History Levothyroxine Sodium [Levoxyl] 50 mcg PO QAM 04/14/16 09/13/17 History Albuterol Inhaler [Ventolin Hfa 1 - 2 puff INHALATION RT-Q6H PRN 09/13/17 History Inhaler] Insulin Degludec [Tresiba 60 unit SQ HS 09/13/17 09/13/17 History Flextouch U-100] amLODIPine [Norvasc] 5 mg PO QAM 09/13/17 09/13/17 History metFORMIN HCL [Glucophage] 500 mg PO BID 09/13/17 09/13/17 History Allergies Allergy/AdvReac Type Severity Reaction Status Date / Time adhesive Allergy Rash/Hives Verified 09/13/17 10:37 adhesive tape Allergy Rash/Hives,states Verified 09/13/17 10:37 "paper tape ok" egg Allergy stomach Verified 09/13/17 10:37 upset latex Allergy Rash/Hives Verified 09/13/17 10:37 Penicillins Allergy Nausea & Verified 09/13/17 10:37 Vomiting sulfamethoxazole Allergy muscle Verified 09/13/17 10:37 spasms,dyspnea Surgical - Exam Vital Signs Temp Pulse Resp BP Pulse Ox 98.1 F 99 18 123/87 100 09/16/17 07:23 09/16/17 07:23 09/16/17 07:23 09/16/17 07:23 09/16/17 07:23
[2017-09-16 07:39] LABS: Glucose,Whole Blood 120 mg/dL (75-99)
--- NOTE | 2017-09-16 09:21 | P.PCN ---
Date of Procedure: 09/16/17 Description of Procedure: PREOPERATIVE DIAGNOSIS: Personal history of colon polyp POSTOPERATIVE DIAGNOSIS: Personal history of colon polyps. Sigmoid diverticulosis Sigmoid colon polyp OPERATION: Colonoscopy to the ileocecal valve Colonoscopy with multiple cold forceps biopsies. SURGEON: Connie Salgado MD. ANESTHESIA: MAC. INDICATIONS: The patient is a 61-year-old female who presents for colonoscopy screening. Last colonoscopy was 7 years ago. Benefits and risks were described and informed consent was obtained. DESCRIPTION OF PROCEDURE: The patient had undergone Gatorade, MiraLAX and Dulcolax prep. She had been brought into the operating room and laid in the left lateral decubitus position. After adequate intravenous sedation, the rectum was examined with 2% lidocaine jelly. No external hemorrhoids were encountered. The rectal tone was within normal limits. No lesions were palpated in the rectal vault. An Olympus colonoscope was advanced until the ileocecal valve were clearly viewed. The prep was fair with visualization of the mucosal folds. The scope was removed with visualization of each mucosal fold. The colon was severely tortuous frequent abdominal wall pressure. Sigmoid diverticulosis was encountered. Multiple colonic polyps were found in the sigmoid colon. No evidence of focal colitis was found. Retroflexion of the scope demonstrated no internal hemorrhoids without active bleeding or inflammation. The colon was desufflated. The patient had tolerated the procedure well. Withdrawal time was over 6 minutes. FINDINGS: No internal hemorrhoids No external hemorrhoids No arteriovenous malformations Severe sigmoid diverticulosis with impaction of diverticula Removal of 2 polyps: -Cold forceps biopsy x 2 at 20 cm from the anal verge, 4 mm polyp in sigmoid colon No focal colitis. RECOMMENDATIONS: Repeat colonoscopy in 5 years, 2022 Plan - Discharge Summary New Discharge Prescriptions: No Action Pravastatin Sodium 40 mg PO DAILY Hydrochlorothiazide 25 mg PO DAILY predniSONE 10 mg PO HS Ergocalciferol [Vitamin D2 (DRISDOL)] 50,000 unit PO Q30D cloNIDine HCL [Catapres] 0.2 mg PO BID Levothyroxine Sodium [Levoxyl] 50 mcg PO QAM Albuterol Inhaler [Ventolin Hfa Inhaler] 1 - 2 puff INHALATION RT-Q6H PRN PRN Reason: sob Insulin Degludec [Tresiba Flextouch U-100] 60 unit SQ HS metFORMIN HCL [Glucophage] 500 mg PO BID amLODIPine [Norvasc] 5 mg PO QAM Discharge Medication List Ergocalciferol [Vitamin D2 (DRISDOL)] 50,000 unit PO Q30D 04/13/16 [History] Hydrochlorothiazide 25 mg PO DAILY 04/13/16 [History] Pravastatin Sodium 40 mg PO DAILY 04/13/16 [History] cloNIDine HCL [Catapres] 0.2 mg PO BID 04/13/16 [History] predniSONE 10 mg PO HS 04/13/16 [History] Levothyroxine Sodium [Levoxyl] 50 mcg PO QAM 04/14/16 [History] Albuterol Inhaler [Ventolin Hfa Inhaler] 1 - 2 puff INHALATION RT-Q6H PRN [History] Insulin Degludec [Tresiba Flextouch U-100] 60 unit SQ HS 09/13/17 [History] amLODIPine [Norvasc] 5 mg PO QAM 09/13/17 [History] metFORMIN HCL [Glucophage] 500 mg PO BID 09/13/17 [History]
[2017-09-16 09:27] VITALS: PULSE 87; RESP 16
[2017-09-16 09:45] VITALS: BP 126/89
== END | disposition home or self-care (01) ==
LOC: ORWHC2ENDO 07:06
PROVIDERS: ATTEND Surgery Plastic and Reconstructive Surgery
DX: Z12.11 Encounter for screening for malignant neoplasm of colon (principal); K63.5 Polyp of colon; Q43.8 Other specified congenital malformations of intestine; K21.9 Gastro-esophageal reflux disease without esophagitis; K57.30 Diverticulosis of large intestine without perforation or abscess without bleeding; Z86.010 Personal history of colon polyps; E11.9 Type 2 diabetes mellitus without complications; Z79.4 Long term (current) use of insulin; I10 Essential (primary) hypertension; E07.9 Disorder of thyroid, unspecified; Z87.891 Personal history of nicotine dependence; Z79.890 Hormone replacement therapy; Z79.52 Long term (current) use of systemic steroids; Z79.899 Other long term (current) drug therapy; Z91.012 Allergy to eggs; Z91.040 Latex allergy status; Z88.0 Allergy status to penicillin; Z88.2 Allergy status to sulfonamides; Z91.09 Other allergy status, other than to drugs and biological substances
CPT/HCPCS: 88305; 45380; J2704

== ENCOUNTER → 2018-04-13 | Outpatient (CLI) | payer BC ==
--- NOTE | 2018-04-14 07:06 | XR ---
EXAM TYPE: LUMBAR SPINE X RAY SERIES COMPARISON: NONE HISTORY: Low back pain TECHNIQUE: 3 views are submitted. FINDINGS: Alignment is anatomic. The pedicles are intact. The transverse processes are intact. There is no s pondylolisthesis. Diffuse osteopenia. Vascular calcifications noted. Severe degenerative disc diseas e T12-L1. Mild degenerative disc disease L5-S1 IMPRESSION: 1. Severe degenerative disc disease T12-L1. 2. Mild degenerative disc disease L5-S1..
== END | disposition home or self-care (01) ==
LOC: RADXRMAIN 16:37
PROVIDERS: ATTEND Physician Assistant
DX: M51.35 Other intervertebral disc degeneration, thoracolumbar region (principal); M51.37 Other intervertebral disc degeneration, lumbosacral region
CPT/HCPCS: 72100

== ENCOUNTER → 2018-05-15 | Outpatient (CLI) | payer BC ==
--- NOTE | 2018-05-15 22:02 | MR ---
EXAMINATION TYPE: MR lumbar spine wo con DATE OF EXAM: 05/15/2018 COMPARISON: No prior HISTORY: Low back pain CONTRAST: 0 mL intravenous Gadavist. TECHNIQUE: Multiplanar, multisequence images of the lumbar spine were acquired 3.0 Zayra magnet.. FINDINGS: L5-S1: No significant disc bulge or disc herniation. No spinal canal stenosis. No foraminal stenosi s. . L4-L5: Minimal disc bulge has anterior thecal sac contact. This is greater into the left paracentral left lateral directions. This is best visualized sagittal plane. No spinal canal stenosis or neural f oraminal stenosis is present. L3-L4: No significant disc bulge or disc herniation. No spinal canal stenosis. No foraminal stenosi s. . L2-L3: No significant disc bulge or disc herniation. No spinal canal stenosis. No foraminal stenosi s. . L1-L2: Mild disc bulge is present. There is some asymmetric right paracentral disc bulge with mild to moderate anterior thecal sac compression. No cord contact is evident. No spinal canal stenosis prese nt. Neural foramen are patent. Cord terminates at the L2 superior level. T12-L1: There is loss of disc height is level. Right paracentral disc herniation is present with mode rate anterior thecal sac compression. No cord contact is evident. Neural foramen are patent. IMPRESSION: 1. Right paracentral disc herniation T12-L1 with moderate anterior thecal sac compression but without cord contact. 2. Disc bulging right paracentral region with mild to moderate anterior thecal sac compression withou t cord contact. 3. Minimal disc bulging L4-5 the left paracentral left lateral direction with mild anterior thecal sa c compression.
== END | disposition home or self-care (01) ==
LOC: RADMRIMAIN 19:29
PROVIDERS: ATTEND Family Medicine
DX: M51.26 Other intervertebral disc displacement, lumbar region (principal); M51.25 Other intervertebral disc displacement, thoracolumbar region; G95.29 Other cord compression
CPT/HCPCS: 72148

== ENCOUNTER → 2018-06-08 | Outpatient (CLI) | payer BC ==
[2018-06-06 14:49] VITALS: BMI 23.6
[2018-06-08 12:33] VITALS: BP 115/84; PULSE 93; RESP 16
--- NOTE | 2018-06-10 20:34 | P.PAINCN ---
History of Present Illness - Reason for Consult Consult date: 06/08/18 - History of Present Illness This is 62 years old female, with a three-month history of severe low back pain, with radiation to the left buttock and left groin, the pain does not radiate to the lower extremity, she denies any initiating event, and she described intensity of the pain between 5/10 increased with any activity, the pain is constant and increases with any movement, interfering with her quality of life, she denies any fever or night sweats she denies any change in the bowel movement or urination, and no motor or sensory deficits Past Medical History Past Medical History: Diabetes Mellitus, GERD/Reflux, Hypertension, Skin Disorder, Thyroid Disorder Additional Past Medical History / Comment(s): Taking prednisone for NSIP- (chronic lung condition), states diabetes caused by steroid use., eczema, Hx of Gout., Past hx of GERD., Irregular Heart beat., States Back pain that radiates to buttocks and down left leg-has difficulty walking ., Recently finished antibiotic for lung infection. History of Any Multi-Drug Resistant Organisms: None Reported Past Surgical History: Tubal Ligation Additional Past Surgical History / Comment(s): thyroidectomy,marker rt breast, bronchoscopy Past Anesthesia/Blood Transfusion Reactions: Motion Sickness, Postoperative Nausea & Vomiting (PONV) Additional Past Anesthesia/Blood Transfusion Reaction / Comm: states "has a hard time coming out of anesthesia". no hx blood transfusion Smoking Status: Former smoker - Past Family History Mother Family Medical History: COPD, Diabetes Mellitus Additional Family Medical History / Comment(s): "bad heart" Father Family Medical History: Renal Disease Sister(s) Family Medical History: Congestive Heart Failure (CHF), COPD, Diabetes Mellitus, Hypertension Medications and Allergies Home Medications Medication Instructions Recorded Confirmed Type Ergocalciferol [Vitamin D2 50,000 unit PO Q30D 04/13/16 06/06/18 History (DRISDOL)] Pravastatin Sodium 40 mg PO DAILY 04/13/16 06/06/18 History cloNIDine HCL [Catapres] 0.2 mg PO DAILY 04/13/16 06/06/18 History Albuterol Inhaler [Ventolin Hfa 1 - 2 puff INHALATION RT-Q6H PRN 09/13/17 06/06/18 History Inhaler] Insulin Degludec [Tresiba 64 unit SQ W/SUPPER 07/31/18 04/23/19 History Flextouch U-100] metFORMIN HCL [Glucophage] 500 mg PO BID 09/13/17 06/06/18 History Ibuprofen [Motrin] 400 mg PO HS PRN 06/06/18 06/06/18 History Levothyroxine Sodium [Levoxyl] 125 mcg PO DAILY 06/06/18 06/06/18 History amLODIPine [Norvasc] 10 mg PO DAILY 06/06/18 06/06/18 History predniSONE 10 mg PO HS 06/06/18 06/06/18 History traMADol HCL [Ultram] 50 mg PO HS PRN 06/06/18 06/06/18 History Allergies Allergy/AdvReac Type Severity Reaction Status Date / Time adhesive Allergy Rash/Hives Verified 06/06/18 14:31 adhesive tape Allergy Rash/Hives,states Verified 06/06/18 14:31 "paper tape ok" egg Allergy stomach Verified 06/06/18 14:31 upset latex Allergy Rash/Hives Verified 06/06/18 14:31 Penicillins Allergy Nausea & Verified 06/06/18 14:31 Vomiting aspirin AdvReac Severe Abdominal Verified 06/06/18 14:31 Pain-"tears my stomach up" Physical Exam Social history : not smoker , NO ETOH , NO Illegal drugs use . Family history : positive for Review of Systems : - Constitutional : no chills , no fever , no night sweats , - Ears : no ear discharge , no change in hearing -Nose, Mouth ,Throat ; no bleeding gums, no sore throat , no epistaxis , -Cardiovascular : Denies chest pain, , no orthopnea , no palpitation -Respiratory : Denies cough , no dyspnea , no hemoptysis -Gastrointestinal :, no change in bowel habits , no coffee- ground emesis . -Genitourinary : No hematuria , no discharge , no incontinence, -Musculoskeletal : No gait dysfunction , report low back pain , - Neurological : no ataxia , no tremor , no sezure , -Psychatric , no suicidal ideation no hallucination - Endocrine : no cold intolerence , no polyuria , no polydypsia , -Hematologic : no easy bleeding , no easy brusing , -Allergic / immunology : no angioedema , no wheezing ,no allergic rhinitis -Integumentary : no brttle nails , no change hair / nails , no foot/leg ulcers . Physical Examinations : -Constitutional : Cooperative , not in acute distress . -HEENT : nech ; supple , no Lymphadenopathy , no Thyromegaly , :eyes , no icterus, no photophobia . ENT : , normal oropharynx , no Thrush - Respiratory : Chest clear to auscultations Bilaterally , no wheezing . - Cardiovascular : regular rate and rhythem , S1 , S2 , no S3 , no S4. - Gastrointestinal: abdomen soft no tenderness , no organomegally . - Genitourinary : Defferred . -Integumentary : No cellulitis , no ulcers , normal skin turgor , no cyanotic . - neurologic : Cranial nerve II to XII intact , no focal neurological deffecit -psychatric : alert , oriented X 3 , appropriate affect , intact judgment and insight . -Lymphatic : no Lymphadenopathy. - musculoskeltal: normal gait . Lumber spine moter stegnth lower extremities ,thigh and legs 5/5 Right side , 5/5 Left side , normal sensation deep tendon reflexes : normal Knee Jerk , normal ankle Jerk lumber facet Loading Test negative bilaterally Range of motion of the lumbar spine Flexion 30 degrees, extension 10 degrees strait leg raising test , positive at 30 degree on the left side ,and its negative on the right side Fabere test positive on the left side, and negative on the right Results Comments: MRI of the lumbar spine L4 5 bulging disc disease Assessment and Plan Plan: Assessment and plan= severe chronic low back pain secondary to lumbar disc disease, patient could benefit from lumbar epidural steroid injection at L4-L5 level (Left paramedian approach ) , Recommend continue the current pain medication Ultram 50 mg daily at bedtime when necessary and Motrin when necessary Time with Patient: Greater than 30 PQRS Measure Charge Sheet Measure #130: Documentation of Current Meds in Medical Chart: Patient's medications documented in chart Measure #226: Tobacco Use: Screen & Cessation Intervention: Pt not a tobacco user Measure #111: Pneumonia Vaccination: Pneumococcal vaccine administered or previously received Measure #47: Advance Care Plan: Advance care planning discussed & documented, pt chose/unable to give Measure #412: Opioid Treatment Agreement: No documentation of signed opioid treatment agreement Measure #408: Opioid Therapy Follow-up Evaluation: Patient had NO f/u eval minimum every 3 months during opioid therapy Measure #317: Preventitive Care & Scrn High Bld Press & F/U: Normal blood pressure, f/u not required Measure #128: Body Mass Index (BMI) Screening & Follow-up: BMI documented within normal parameters Measure #131: Pain Assessment & Follow-up: Pain positive & plan documented, Follow-up scheduled Measure #431: Unhealthy Alcohol Use Preventative Care & Scrn: Patient not identified as an unhealthy alcohol user PQRS Narrative: Smoking Status Former smoker Do You Want the Pneumonia Yes Vaccine AT THIS TIME? Blood Pressure 115/84 Pain Intensity [Lower Back] 5 Scale Used Numeric (1 - 10) Hx Alcohol Use (MH) Yes: occasionally Home Medications: Ambulatory Orders Ergocalciferol [Vitamin D2 (DRISDOL)] 50,000 unit PO Q30D 04/13/16 Pravastatin Sodium 40 mg PO DAILY 04/13/16 cloNIDine HCL [Catapres] 0.2 mg PO DAILY 04/13/16 Albuterol Inhaler [Ventolin Hfa Inhaler] 1 - 2 puff INHALATION RT-Q6H PRN 09/13/17 Insulin Degludec [Tresiba Flextouch U-100] 64 unit SQ W/SUPPER 09/13/17 metFORMIN HCL [Glucophage] 500 mg PO BID 09/13/17 Ibuprofen [Motrin] 400 mg PO HS PRN 06/06/18 Levothyroxine Sodium [Levoxyl] 125 mcg PO DAILY 06/06/18 amLODIPine [Norvasc] 10 mg PO DAILY 06/06/18 predniSONE 10 mg PO HS 06/06/18 traMADol HCL [Ultram] 50 mg PO HS PRN 06/06/18
== END ==
LOC: PNWHC3 11:57
PROVIDERS: ATTEND Specialist
DX: G89.29 Other chronic pain (principal); M51.36 Other intervertebral disc degeneration, lumbar region; E11.9 Type 2 diabetes mellitus without complications; K21.9 Gastro-esophageal reflux disease without esophagitis; I10 Essential (primary) hypertension; Z87.891 Personal history of nicotine dependence; Z79.899 Other long term (current) drug therapy; Z79.4 Long term (current) use of insulin; Z79.1 Long term (current) use of non-steroidal anti-inflammatories (NSAID); Z79.891 Long term (current) use of opiate analgesic; Z90.89 Acquired absence of other organs; Z91.048 Other nonmedicinal substance allergy status; Z91.040 Latex allergy status; Z88.0 Allergy status to penicillin; Z88.6 Allergy status to analgesic agent
CPT/HCPCS: 99211

== ENCOUNTER → 2018-07-27 | Outpatient (CLI) | payer BC ==
--- NOTE | 2018-07-27 09:58 | US ---
EXAMINATION TYPE: US abdomen complete DATE OF EXAM: 07/27/2018 COMPARISON: US 2012 CLINICAL HISTORY: R14.0 ABD distension. Intermittent RUQ pain, N/V and bloating EXAM MEASUREMENTS: Liver Length: 15.4 cm Gallbladder Wall: 0.1 cm CBD: 0.4 cm Spleen: 7.9 cm Right Kidney: 9.5 x 4.4 x 5.4 cm Left Kidney: 10.3 x 4.8 x 5.0 cm Pancreas: duct seen measuring 0.3cm Liver: mildly heterogeneous with 1.2cm hypoechoic area adjacent to gallbladder Gallbladder: wnl Evidence for sonographic Bey's sign: no CBD: wnl Spleen: wnl Right Kidney: 2.1 x 1.7 x 2.2cm cystic area mid pole Left Kidney: wnl Upper IVC: wnl Abd Aorta: wnl IMPRESSION: 1. Liver is heterogeneous correlate for fatty infiltration or ascites. Focal hypoechoic area near the ruth hepatis likely relates. Focal fatty sparing. Correlation with CT scan could be obtained for co nfirmation. 2. Simple right renal cyst
== END ==
LOC: RADUSWWP 09:06
PROVIDERS: ATTEND Family Medicine
DX: N28.1 Cyst of kidney, acquired (principal); R93.2 Abnormal findings on diagnostic imaging of liver and biliary tract
CPT/HCPCS: 76700

== ENCOUNTER → 2019-10-02 | Outpatient (CLI) | payer BC ==
--- NOTE | 2019-10-02 16:14 | XR ---
EXAMINATION TYPE: XR shoulder complete RT DATE OF EXAM: 10/02/2019 CLINICAL HISTORY: Chronic shoulder pain. No injury. TECHNIQUE: Three views of the right shoulder are obtained. COMPARISON: None. FINDINGS: There is no acute fracture/dislocation evident in the right shoulder. The acromioclavicul ar and glenohumeral joint spaces appear within normal limits. There is cortical irregularity of the greater tuberosity. The visualized ribs are intact and unremarkable. IMPRESSION: 1. There is no acute fracture or dislocation in the right shoulder. 2. Cortical irregularity of the greater tuberosity may represent sequela of chronic rotator cuff path ology.
== END | disposition home or self-care (01) ==
LOC: RADXRMAIN 12:46
PROVIDERS: ATTEND Family Medicine
DX: M89.8X1 Other specified disorders of bone, shoulder (principal)

== ENCOUNTER → 2019-11-05 | Outpatient (CLI) | payer BC ==
--- NOTE | 2019-11-05 15:53 | MR ---
EXAMINATION TYPE: MR cervical spine wo con DATE OF EXAM: 11/05/2019 COMPARISON: Plain film 08/18/2016 HISTORY: Neck pain, left sided numbness TECHNIQUE: Multiplanar, multisequence images of the cervical spine were acquired. C2-C3: No evidence for degenerative disc disease. No disc bulge/herniation or protrusion. No Canal stenosis. Foramina are patent bilaterally. There is some facet arthropathy change bilaterally. C3-C4: Posterior broad-based disc bulge causes anterior mass effect on the thecal sac, there is moder ate to severe spinal stenosis, likely there is contact the anterior cervical cord. Mild foraminal enc roachment present bilaterally. C4-C5: There is a posterior broad-based disc bulge, posterior extension endplate disc complex causing mass effect on the cervical cord, moderate to severe spinal stenosis. Uncovertebral joint hypertroph y contributes to cause bilateral foraminal encroachment. C5-C6: Posterior extension endplate disc complex results in mild spinal stenosis. Right-sided foramin al encroachment is present due to uncovertebral joint hypertrophy. C6-C7: Posterior broad-based disc bulge causes mild anterior mass effect on the thecal sac. Uncoverte bral joint hypertrophy causes bilateral foraminal encroachment. C7-T1: There is a minimal posterior disc bulge present. Uncovertebral joint hypertrophy causes bilate ral foraminal encroachment. No significant spinal stenosis. Cervical segments are intact. There is multilevel spondylosis. Endplate discogenic marrow signal hernandez ges are present with associated loss of disc height at C3-4, C4-5, C5-6 and C6-7, C7-T1. There is ant erolisthesis grade 1 C3-4, retrolisthesis grade 1 C4-5, C5-6, C6-7. Some abnormal increased signal pr esent within the cervical cord on sagittal image 7, axial image #32 through 34 suggests possible myel omalacia. Cervical vertebral bodies show preserved height. IMPRESSION: Degenerative disc disease, spinal stenosis greatest at C3-4, C4-5 with findings suggestive of cord si gnal change as described
== END | disposition home or self-care (01) ==
LOC: RADMRIMAIN 12:52
PROVIDERS: ATTEND Family Medicine
DX: M48.02 Spinal stenosis, cervical region (principal); M50.31 Other cervical disc degeneration, high cervical region
CPT/HCPCS: 72141